=== PATIENT | male | born 1980 | race Caucasian/White ===

== ENCOUNTER → 2018-11-13 11:00 | Outpatient (CLI) | payer BC | END | disposition home or self-care (01) | LOC: D.US 10-19 15:00 | PROVIDERS: ATTEND Nurse Practitioner Family | DX: R60.0 Localized edema (principal); N50.811 Right testicular pain ==

== ENCOUNTER → 2019-07-22 09:03 | Outpatient (CLI) | payer BC | END | disposition home or self-care (01) | LOC: D.RAD 07-21 09:15 → D.CT 07-21 09:30 → D.RAD 08:45 | PROVIDERS: ATTEND Internal Medicine Hematology & Oncology | DX: C62.11 Malignant neoplasm of descended right testis (principal) ==